=== PATIENT | female | born 1965 | race Caucasian/White ===

== ENCOUNTER 2017-06-22 08:53 | Inpatient (IN) | payer MEDICAID ==
[~2017-06-22] VITALS: Ht 172.7 cm; Wt 89.0 kg
[2017-06-22] MEDS ORDERED: SODIUM CHLORIDE 0.9% 1,000 ML IVB ONE (09:24)
[2017-06-22] MEDS ORDERED: LORazepam 2MG/ML-1ML VIAL IV ONE (09:30)
[2017-06-22] MEDS ORDERED: ONDANSETRON HCL 4 MG/2 ML VIAL IV ONE (09:30)
[2017-06-22] MEDS ORDERED: LEVETIRACETAM INJ 1,000 MG in D5W 5% 100 ML IV ONE (10:15)
[2017-06-22 10:26] LABS: Mean Corpuscular Hgb Conc. 32.4 g/dL (32.0-36.0)
[2017-06-22 10:28] LABS: Hematocrit 47.3 % (36.0-46.0); Hemoglobin 15.3 g/dL (12.2-16.2); Mean Corpuscular Hemoglobin 30.6 pg (28.0-32.0); Mean Corpuscular Volume 94.5 fL (80.0-100.0); Platelet Count (auto) 366 10^3/uL (140-450); Red Cell Distribution Width 13.2 % (11.8-14.3)
[2017-06-22 10:37] LABS: White Blood Cell 36.2 10^3/uL (4.4-10.8)
[2017-06-22 10:38] LABS: Basophils % (manual) 0 (0.0-2.0); Blast Cells 0; Eosinophils % (manual) 0 (0-7); Metamyelocytes % 0; Myelocytes % 0; Promyelocytes % 0; Reactive Lymphocytes 0
[2017-06-22 10:57] LABS: Band Neutrophils % (manual) 4; Lymphocytes % (manual) 9 (10.0-50.0); Monocytes % (manual) 5 (0-12)
[2017-06-22] MEDS ORDERED: MORPHINE SULFATE 10 MG/ML INJ 1ML SDV IV PRN ×2 (11:00)
[2017-06-22] MEDS ORDERED: LORazepam 0.5 MG TAB PO PRN (11:00)
[2017-06-22] MEDS ORDERED: TEMAZEPAM 15 MG CAP PO PRN (11:00)
[2017-06-22] MEDS ORDERED: HYDROcodone-ACET 5/325MG TAB PO PRN (11:00)
[2017-06-22] MEDS ORDERED: LACTULOSE 20Gm/30ML SOLN PO PRN (11:00)
[2017-06-22] MEDS ORDERED: ACETAMINOPHEN 500 MG TAB PO PRN (11:00)
[2017-06-22] MEDS ORDERED: LORazepam 2MG/ML-1ML VIAL IV PRN ×2 (11:00→18:15)
[2017-06-22] MEDS ORDERED: NITROGLYCERIN 0.4 MG SL TAB SL PRN (11:00)
[2017-06-22 11:06] LABS: Alanine Aminotransferase 27 U/L (13-56); Albumin 4.2 g/dL (3.4-5.0); Alkaline Phosphatase 67 U/L (45-117); Anion Gap 20 (5-15); Aspartate Aminotransferase 20 U/L (15-37); BUN/Creatinine Ratio 9.1; Bilirubin, Total 0.3 mg/dL (0.2-1.0); Blood Alcohol < 3.0 mg/dL (0-5); Blood Urea Nitrogen 12 mg/dL (7-18); Carbon Dioxide 13 mmol/L (21-32); Chloride 103 mmol/L (98-107); GFR African American 54 mL/min; GFR Non-African American 45 mL/min; Glucose 168 mg/dL (74-106); Potassium 3.8 mmol/L (3.5-5.1); Sodium 136 mmol/L (136-145); Total Protein 8.4 g/dL (6.4-8.2)
[2017-06-22 11:21] LABS: Urine Bacteria FEW /hpf (None Seen); Urine Blood 1+ /uL (Negative); Urine Specific Gravity 1.013 (1.001-1.035); Urine WBC 2 /hpf (0 - 5)
[2017-06-22] MEDS ORDERED: LEVETIRACETAM 500 MG TAB PO ONE (11:30)
[2017-06-22] MEDS: SODIUM CHLORIDE 0.9% 1,000 ML IV SCH (11:34)
[2017-06-22 11:52] LABS: Alcohol, Urine < 3.0 mg/dL (0-5); Amphetamine Screen, Urine NEGATIVE (NEGATIVE); Barbiturate Scree,Urine NEGATIVE (NEGATIVE); Benzodiazephine Screen, Urine NEGATIVE (NEGATIVE); Cannabinoid Screen, Urine POSITIVE (NEGATIVE); Cocaine Screen, Urine NEGATIVE (NEGATIVE); Opiate Scree,Urine NEGATIVE (NEGATIVE); Phencyclidine Screen, Urine NEGATIVE (NEGATIVE)
[2017-06-22] MEDS ORDERED: LIDOCAINE 1% HCL (LOCAL ANESTH.) INJ 20ML MDV ONE (11:57)
[2017-06-22] MEDS: PROMETHAZINE HCL 25 MG/ML 1ML IV PRN ×2 (13:48→22:25)
[2017-06-22 14:14] LABS: Protein, CSF 52.9 mg/dL (15-45)
[2017-06-22] MEDS ORDERED: cefTRIAXone 1GM/10ml IVPUSH 10 ML IV SCH (15:00)
[2017-06-22] MEDS ORDERED: cefTRIAXone 1GM/10ml IVPUSH 10 ML IV ONE ×4 (15:03→15:45)
[2017-06-22 15:21] LABS: CSF White Blood Cells 10 CUMM (0-5)
[2017-06-22] MEDS ORDERED: DEXAMETHASONE SOD PHOS 10MG/1ML VIAL INJ IV ONE (15:45)
[2017-06-22] MEDS: DEXAMETHASONE SOD PHOS 4 MG/1ML SDV INJ IV SCH (17:31)
[2017-06-22 18:37] LABS: Cholesterol 284 mg/dL (< 200); HDL Cholesterol 76 mg/dL (40-59); LDL Cholesterol 194 mg/dL (< 100); Triglycerides 181 mg/dL (< 150)
[2017-06-22] MEDS: CEFTRIAXONE SODIUM 2 GM in D5W 5% 50 ML IV SCH (21:37)
[2017-06-22 22:00] VITALS: BP 123/65
[2017-06-22] MEDS ORDERED: ATORVASTATIN 20 MG TAB PO SCH (22:00)
[2017-06-22] MEDS: LEVETIRACETAM 500 MG TAB PO SCH (22:17)
[2017-06-23] MEDS: SODIUM CHLORIDE 0.9% 1,000 ML IV SCH ×2 (00:18→13:55)
[2017-06-23] MEDS: DEXAMETHASONE SOD PHOS 4 MG/1ML SDV INJ IV SCH ×4 (00:51→18:37)
[2017-06-23 05:00] VITALS: BP 107/70
[2017-06-23 07:59] LABS: Basophils # (auto) 0 uL; Basophils % (auto) 0.1 % (0.0-2.0); Eosinophils # (auto) 0 uL; Hematocrit 39.8 % (36.0-46.0); Hemoglobin 13.5 g/dL (12.2-16.2); Lymphocytes # (auto) 1.1 uL; Lymphocytes % (auto) 5.5 % (10.0-50.0); Mean Corpuscular Hemoglobin 30.7 pg (28.0-32.0); Mean Corpuscular Volume 90.1 fL (80.0-100.0); Monocytes # (auto) 0.4 uL; Monocytes % (auto) 1.9 % (0.0-12.0); Neutrophils # (auto) 18.1 uL; Neutrophils % (auto) 92.5 % (37.0-80.0); Platelet Count (auto) 284 10^3/uL (140-450); Red Blood Cells 4.41 10^6/uL (4.0-5.20); Red Cell Distribution Width 13.2 % (11.8-14.3); White Blood Cell 19.6 10^3/uL (4.4-10.8)
[2017-06-23 08:09] LABS: Albumin 3.4 g/dL (3.4-5.0); BUN/Creatinine Ratio 12.2; Bilirubin, Total 0.4 mg/dL (0.2-1.0); Calcium 8.7 mg/dL (8.5-10.1); Potassium 3.7 mmol/L (3.5-5.1); Total Protein 7.2 g/dL (6.4-8.2)
[2017-06-23] MEDS: CEFTRIAXONE SODIUM 2 GM in D5W 5% 50 ML IV SCH (09:00)
[2017-06-23 09:28] VITALS: BP 122/83
[2017-06-23] MEDS ORDERED: ENOXAPARIN SOD 40 MG/0.4 ML SYRINGE SC SCH (10:00)
[2017-06-23] MEDS ORDERED: ASPirin-EC 81 mg tab PO SCH (10:00)
[2017-06-23] MEDS ORDERED: FAMOTIDINE (10MG/ML) 2ML VL IV SCH (10:00)
[2017-06-23] MEDS: LEVETIRACETAM 500 MG TAB PO SCH (11:32)
[2017-06-23 12:12] VITALS: BP 127/79
[2017-06-23 16:38] VITALS: BP 142/76
[2017-06-23 19:27] VITALS: BP 142/76
== END 2017-06-23 20:00 | disposition home or self-care (01) | DRG 50 ==
LOC: ER 08:53 → EDBD 08:53 → TELE 08:54 → TELE-EAST 18:54
PROVIDERS: ADMIT Internal Medicine; ATTEND Internal Medicine
PROC: 009U3ZX Drainage of Spinal Canal, Percutaneous Approach, Diagnostic (ICD-10-PCS; principal; 2017-06-22)
DX: G03.0 Nonpyogenic meningitis (principal); G40.401 Other generalized epilepsy and epileptic syndromes, not intractable, with status epilepticus; D72.829 Elevated white blood cell count, unspecified; F12.90 Cannabis use, unspecified, uncomplicated; K59.00 Constipation, unspecified; F41.9 Anxiety disorder, unspecified; G47.00 Insomnia, unspecified; Z86.73 Personal history of transient ischemic attack (TIA), and cerebral infarction without residual deficits; Z79.899 Other long term (current) drug therapy
CPT/HCPCS: 36415; 62270; 70450; 70551; 71045; 80053; 80061; 80307; 80320; 81001; 82945; 82962; 84157; 85007; 85025; 85027; 85652; 87040; 87070; 87086; 87205; 89051; 93005; 93306; 93886; 95819; 96365; 96375; 96376; 99291; J0696; J1100; J2001; J2405; J3490; J7060